=== PATIENT | male | born 2000 | race Caucasian/White ===

== ENCOUNTER 2022-10-05 16:25 | Outpatient (REF) | payer BC, SELFPAY ==
[2022-10-05 16:14] LABS: ALT 19 U/L (16-63); AST 20 U/L (15-37); Albumin 4.1 g/dL (3.4-5.0); Alkaline Phosphatase 96 U/L (46-116); Anion Gap 9.8 mmol/L (3-11); BUN 14 mg/dL (7-18); Bilirubin, Total 0.5 mg/dL (0.2-1.0); CO2 26.2 mmol/L (21.0-32.0); CREATININE 0.9 mg/dL (0.70-1.30); Calcium 9.4 mg/dL (8.5-10.1); Calculated LDL 163 mg/dL (<100); Chloride 101 mmol/L (98-107); Cholesterol 228 mg/dL (<200); Estimated GFR 125.39 (mL/min/1.73m2); Glucose 79 mg/dL (74-106); HDL Cholesterol 42 mg/dL (40-60); Potassium 4.6 mmol/L (3.5-5.1); Sodium 137 mmol/L (136-145); Total Protein 7.6 g/dL (6.4-8.2); Triglyceride 117 mg/dL (<150)
== END 2022-10-05 16:26 | disposition home or self-care (01) ==
LOC: LBN 16:25
PROVIDERS: PCP Family Medicine; Visit Provider Family Medicine
DX: Z00.00 Encounter for general adult medical examination without abnormal findings (principal); E66.9 Obesity, unspecified; R03.0 Elevated blood-pressure reading, without diagnosis of hypertension
CPT/HCPCS: 80053; 80061

== ENCOUNTER 2023-03-09 12:44 | Outpatient (REF) | payer BC, SELFPAY | END 2023-03-09 12:45 | disposition home or self-care (01) | LOC: LBN 12:44 | PROVIDERS: PCP Family Medicine; Visit Provider Physician Assistant Medical | DX: J35.1 Hypertrophy of tonsils (principal) | CPT/HCPCS: 87081 ==

== ENCOUNTER 2023-05-17 09:35 | Outpatient (REF) | payer BC, SELFPAY ==
[2023-05-18 09:03] LABS: Source Nasal/Nares
[2023-05-18 12:50] LABS: COVID-19 PCR Negative (Negative)
== END 2023-05-17 09:36 | disposition home or self-care (01) ==
LOC: LBN 09:35
PROVIDERS: PCP Family Medicine; Visit Provider Nurse Practitioner Family
DX: J06.9 Acute upper respiratory infection, unspecified (principal); Z20.822 Contact with and (suspected) exposure to COVID-19
CPT/HCPCS: 87635

== ENCOUNTER → 2023-05-17 09:38 | Outpatient (REF) | payer BC, SELFPAY ==
--- NOTE | 2023-05-17 09:54 | DI.RAD_ITS ---
Exam(s) XR CHEST 2V PA LATERAL EXAM: XR CHEST 2V PA LATERAL CLINICAL HISTORY: COUGH TECHNIQUE: 2D digital imaging was performed of the chest. Two images were obtained. PA and lateral views were obtained. COMPARISON: No exams were available for comparison FINDINGS: MEDIASTINUM: Normal. HEART: Normal. PULMONARY VASCULATURE: Normal. LUNGS: Clear. PLEURAL SPACE: No pleural effusion or pneumothorax. BONE:Within normal limits for the patient's age. OTHER FINDINGS:Normal. IMPRESSION: No acute pulmonary findings. DATA REPOSITORY: RADIATION DOSE DELIVERED:
--- NOTE | 2023-05-17 10:00 | DI.VRAD_ITS ---
PROCEDURE INFORMATION: Exam: XR Chest Exam date and time: 05/17/2023 9:48 AM Age: 22 years old Clinical indication: Cough TECHNIQUE: Imaging protocol: Radiologic exam of the chest. Views: 2 views. COMPARISON: No relevant prior studies available. FINDINGS: Lungs: Unremarkable. No consolidation. Pleural spaces: Unremarkable. No pleural effusion. No pneumothorax. Heart/Mediastinum: Unremarkable. No cardiomegaly. Bones/joints: Unremarkable. IMPRESSION: No acute findings. Dictated and Authenticated by: Alyce Bonner MD. Ordering:CHEKO MONTANO MD
== END ==
LOC: DI 09:38
PROVIDERS: PCP Family Medicine; Visit Provider Nurse Practitioner Family
DX: R05.9 Cough, unspecified (principal)
CPT/HCPCS: 71046

== ENCOUNTER 2023-09-13 20:07 | Emergency (ER) | payer BC, SELFPAY ==
[2023-09-13 20:11] VITALS: BP 173/90; PULSE 96; RESP 16; TEMP 36.6; O2SAT 98
[2023-09-13] MEDS: Potassium Bicarbonate/Cit AC 25 MEQ TABLET.EFF PO (20:15)
--- NOTE | 2023-09-13 20:27 | ED.GENADUL_ITS ---
Discharge Plan Disposition Patient Disposition: Home Condition: Good Discharge Details Clinical Impression: Food impaction of esophagus Primary Care Provider: Hazel Rowe ED Provider: Nevaeh Ramos Home Meds and New Rx's Prescriptions: No Action No Known Home Meds Discharge Instructions Instructions: Esophageal Dilation (DC) Additional Instructions: Monitor monitor symptoms, if you have recurrent issues with swallowing, you may need to see a GI specialist. Medical Decision Making Emergent evaluation of esophageal food bolus. No airway compromise at this time. No concerning symptoms for esophageal rupture. Not tolerating secretions. Will attempt an oral medication prior to contacting surgery for d efinitive management. 2029: Patient received EZ gas and feels like the food bolus passed and that he can swallow now 2039: Patient symptom-free and drinking water freely. Discharged in good condition. Recommended following up with GI specialist if he has recurrent symptoms. Medical Records Medical records reviewed: Yes I reviewed the patient's medical records. HPI General Date/Time Provider Initiated Documentation: 09/13/23 20:16 . Limitations to Documentation: no limitations . Information obtained by: patient . HPI Narrative: 22-year-old gentleman without significant past medical history presents for evaluation of difficulty swallowing. He reports just prior to arrival he was eating steak and felt like it got stuck in his throat. He has had difficulty swallowing his saliva. He tried to swallow water and force it down, but he has not been able to tolerate that either. He reports some pain at the bottom of his neck. No voice change, no difficulty swallowing. He reports that he has had issues like this in the past, but never has had something this bad. Related Data Home Medications Medication Instructions Recorded Confirmed Unknown [No Known Home Meds] 01/20/23 09/13/23 Allergies Allergy/AdvReac Type Severity Reaction Status Date / Time seasonal Allergy Uncoded 09/13/23 20:18 General Stated Complaint: ForeignBody SANJANA: 4 PFSH All Active Problems (Updated 09/13/23 @ 20:39 by Nevaeh Ramos MD) Food impaction of esophagus (Acute) Nasal congestion (Acute) Snoring (Acute) Medical History History of seizures as a child Anxiety and depression Allergic rhinitis Tonsillar hypertrophy Hypertension Obesity Preventative health care Family History Brother Autism Social History Smoking/Tobacco Use Status: Never Smoking risk assessment performed?: Yes Alcohol Intake: never Drug use: Never What type of physical activity do you participate in: walking Frequency: 1-2 times per week Seatbelt use: always Helmet use: Yes Working smoke detector in home: Yes Firearms in home: No Do you feel safe at home: Yes Do you feel safe in your relationship?: Yes Exam Narrative Exam Narrative: Review of Systems: All systems reviewed & are unremarkable except as noted in HPI and below Well-developed, no acute distress NACT PERRL, normal conjunctiva Spitting secretions Mild tenderness in anterior neck, no crepitus Normal voice, no stridor RRR Unlabored respiratory effort, clear breath sounds bilaterally Nondistended abdomen Extremities w/o deformity, no cyanosis, no edema No rashes or lesions. no focal neurologic deficits Appropriate mood and affect Course Vital Signs Vital signs: Vital Signs Temperature 36.6 C 09/13/23 20:11 Pulse 96 H 09/13/23 20:11 Respiratory Rate 16 09/13/23 20:11 Blood Pressure 173/90 H 09/13/23 20:11 Pulse Oximetry 98 09/13/23 20:11 Temperature 36.6 C 09/13/23 20:11 Pulse 96 H 09/13/23 20:11 Respiratory Rate 16 09/13/23 20:11 Respiratory Effort Normal 09/13/23 20:17 Respiratory Pattern Normal 09/13/23 20:17 Blood Pressure 173/90 H 09/13/23 20:11 Blood Pressure Position Sitting 09/13/23 20:11 Pulse Oximetry 98 09/13/23 20:11 Oxygen Delivery Method Room Air 09/13/23 20:11 Oxygen Flow Rate 0 09/13/23 20:11 Pain Level 2 09/13/23 20:11
== END 2023-09-13 20:59 | disposition home or self-care (01) ==
PROVIDERS: Emergency Provider Emergency Medicine; PCP Family Medicine
DX: T18.128A Food in esophagus causing other injury, initial encounter (principal); I10 Essential (primary) hypertension; W44.F3XA Food entering into or through a natural orifice, initial encounter; Y93.89 Activity, other specified
CPT/HCPCS: 99283; 99282

== ENCOUNTER 2023-11-08 15:17 | Emergency (ER) | payer BC, SELFPAY ==
[2023-11-08 15:20] VITALS: BP 153/86; PULSE 86; RESP 18; TEMP 36.5; O2SAT 99
--- NOTE | 2023-11-08 15:36 | ED.GENADUL_ITS ---
Discharge Plan Disposition Patient Disposition: Home Condition: Stable Discharge Details Clinical Impression: Food impaction of esophagus Primary Care Provider: Hazel Rowe ED Provider: Popeye Garcia Home Meds and New Rx's Prescriptions: No Action No Known Home Meds Discharge Instructions Instructions: Food Impaction (ED) Additional Instructions: You were seen in the emergency department for the food impaction of your esophagus. We helped dissolve and pass the food bolus with Coca-Cola as it has a pH that is extremely acidic. You can try this at home next time this happens but please present to the ER for any airway compromise or severe symptoms. You may want to think about getting a referral to the general surgery practice for an upper endoscopy and studies on your esophagus as this is not the first time this has happened, you could have a genetic condition of the esophagus that may need treatment. Referrals: Hazel Rowe [Primary Care Provider] - Discharge Data Discharge Date/Time-TO BE ENTERED AT DEPARTURE: 11/08/23 15:54 HPI General Date/Time Provider Initiated Documentation: 11/08/23 15:27 . HPI Narrative: 22 year-old male presents to ED today by POV/ambulating with a chief complaint of food impaction in esophagus, denies choking, is breathing, states he has a foreign body sensation snf down his throat after eating steak with onset just prior to arrival. Quality described as discomfort, difficulty swallowing, no radiation to shortness of breath, cyanosis, severe pain, does vomit/spit up any attempted PO intake. Severity is described as 5-6/10. Palliating factors include tried drinking some root beer without relief. Provoking factors include nothing specific. Events leading up to the incident/Associated Symptoms: Patient has had this happen before, has not needed to be scoped. Patient not anticoagulated. Related Data Home Medications Medication Instructions Recorded Confirmed Unknown [No Known Home Meds] 01/20/23 09/13/23 Allergies Allergy/AdvReac Type Severity Reaction Status Date / Time seasonal Allergy Uncoded 09/13/23 20:18 General Stated Complaint: ThroatFB SANJANA: 3 Review of Systems All systems reviewed & are unremarkable except as noted in HPI and below Exam Narrative Exam Narrative: GENERAL APPEARANCE: Well-nourished, non-toxic, awake and alert, atraumatic, no acute distress. SKIN: Warm, pink, dry, intact, without rashes/lesions/ulcerations. HEAD: Normocephalic, atraumatic, normal hair distribution for gender/age. EYES: Pupils PERRLA, EOMs intact without nystagmus, normal conjunctiva, no exudates on lids/lashes. ENT: Nares patent, no circumoral cyanosis, no facial swelling, uvula midline NECK: Supple, trachea midline, painless cervical ROM. LUNGS/CHEST: Non-labored respirations, normal A/P diameter, symmetrical expansion, no chest wall deformity HEART (CV/PV): No peripheral edema, no JVD. ABDOMEN: Soft, non-distended, no guarding. MSK: Normal ROM, no swelling/deformity to bilateral UEs or LEs, moving all extremities without weakness, no cyanosis, spine midline without tenderness, normal curvature. NEURO: Mental Status AAOx4 - alert to person, place, time, events No facial droop, no forehead involvement. Motor: No focal weakness - strength 5/5 in bilateral UEs and LEs, proximal and distal, symmetric. Sensory: sensation intact to light touch globally. Gait normal: patient ambulated without ataxia into ED room. PSYCH: euthymic, cooperative, pleasant, appropriate speech Course Vital Signs Vital signs: Vital Signs Temperature 36.5 C 11/08/23 15:20 Pulse 86 11/08/23 15:20 Respiratory Rate 18 11/08/23 15:20 Blood Pressure 153/86 H 11/08/23 15:20 Pulse Oximetry 99 11/08/23 15:20 Temperature 36.5 C 11/08/23 15:20 Temperature Source Tympanic 11/08/23 15:20 Pulse 86 11/08/23 15:20 Respiratory Rate 18 11/08/23 15:20 Blood Pressure 153/86 H 11/08/23 15:20 Blood Pressure Position Sitting 11/08/23 15:20 Pulse Oximetry 99 11/08/23 15:20 Oxygen Delivery Method Room Air 11/08/23 15:20 Oxygen Flow Rate 0 11/08/23 15:20 Pain Level 7 11/08/23 15:20 Medical Decision Making This dictation utilizes [id number] dictation software and may contain unedited grammatical errors. 22 y/o M presents to ED today with a chief complaint of food bolus in esophagus, has happened before- ate steak, has foreign body sensation. No shortness of breath, is spitting up attempts at PO intake. Patients' medical history: seizure disorder, HTN. Family and social history: noncontributory, works at [employer]. Pertinent exam findings / vital signs include benign respiratory status, nontoxic vitals, no circumoral cyanosis. Differential / pathologies of concern include food impaction, esophagitis, esophageal stricture. Diagnostic studies of: -none. Interventions of: -Had the patient take small sips of Coca-Cola with passage of food impaction within minutes. ED Course/Assessment/Plan: 22-year-old male patient presents with food bolus in his esophagus, this has happened in the past and he has not needed any endoscopy. On arrival he is spitting up mild secretions, denies any respiratory distress and drove himself here. I had him drink a Coca-Cola to expose the food bolus to Coca-Cola's low pH to help dissolve the food bolus, he states that the food bolus passed and he has complete relief of symptoms within minutes, no pharmacologic interventions were necessary. Findings not consistent with choking, respiratory distress, patient passed his food bolus, I did counselor marriage and family him to follow-up with his primary care provider for possible esophageal studies to rule out pathology that would make this more likely to happen again in the future. Disposition of food impaction of esophagus. Patient verbalized understanding of the plan and return to ED criteria and engaged in shared decision making. Medical Records Medical records reviewed: Yes I reviewed the patient's medical records. Quality:SDOH Health Related Social Needs: No Data to Display PFSH All Active Problems (Updated 11/08/23 @ 15:40 by EVI Bishop) Food impaction of esophagus (Acute) Nasal congestion (Acute) Snoring (Acute) Medical History History of seizures as a child Anxiety and depression Allergic rhinitis Tonsillar hypertrophy Hypertension Obesity Preventative health care Family History Brother Autism Social History Smoking/Tobacco Use Status: Never Smoking risk assessment performed?: Yes Alcohol Intake: never Drug use: Never What type of physical activity do you participate in: walking Frequency: 1-2 times per week Seatbelt use: always Helmet use: Yes Working smoke detector in home: Yes Firearms in home: No Do you feel safe at home: Yes Do you feel safe in your relationship?: Yes
== END 2023-11-08 15:54 | disposition home or self-care (01) ==
PROVIDERS: Emergency Provider Physician Assistant; PCP Family Medicine
DX: T18.128A Food in esophagus causing other injury, initial encounter (principal); W44.F3XA Food entering into or through a natural orifice, initial encounter
CPT/HCPCS: 99281; 99282

== ENCOUNTER → 2023-12-22 03:02 | Outpatient (CLI) | payer BC, SELFPAY ==
--- NOTE | 2023-12-22 07:15 | DI.RAD_ITS ---
Exam(s) RF BARIUM SWALLOW EXAM: RF BARIUM SWALLOW CLINICAL HISTORY: food impaction of esophagus,[id number] TECHNIQUE: 2D and realtime digital imaging was performed. CONTRAST MATERIAL: Oral barium Oral water soluble contrast was administered. COMPARISON: No exams were available for comparison FINDINGS: ESOPHAGRAM: Performed standing and recumbent single and air contrast technique. Swallowing was intact but no aspiration nor prominent vallecular residue. There is no evidence of Ze nker's diverticulum. No hypertense upper esophageal sphincter evident. There are no fixed lesions in the esophagus. Normal diameter. No tertiary waves. No achalasia. No hiatal hernia. No reflux demonstrated. The administered radiopaque barium pill rapidly passed from the oral cavity to the GE junction with m ild holdup at the GE junction. The pill, however, rapidly passed into the stomach with 2 additional sips of barium. IMPRESSION: No significant findings on this esophagram study. RADIATION DOSE DELIVERED: sarah Leon=52.9 mGy
[2023-12-22] MEDS: Barium Sulfate 700 MG TAB PO (09:34)
[2023-12-22] MEDS: Barium Sulfate 98% W/W 140 ML BTL PO (09:34)
[2023-12-22] MEDS: Barium Sulfate 60% W/V 355 ML BTL PO (09:35)
[2023-12-22] MEDS: Simethicone/Sod Bicarb/Cit Ac, 4 gram PACKET 1 PACKET PO (09:36)
== END ==
PROVIDERS: PCP Family Medicine; Visit Provider Surgery
DX: E66.8 Other obesity (principal); T18.128A Food in esophagus causing other injury, initial encounter; W44.F3XA Food entering into or through a natural orifice, initial encounter; G47.33 Obstructive sleep apnea (adult) (pediatric)
CPT/HCPCS: 74221; J3490

== ENCOUNTER 2024-02-10 16:26 | Outpatient (REF) | payer BC, SELFPAY ==
[2024-02-10 21:20] LABS: ALT 30 U/L (16-63); AST 19 U/L (15-37); Albumin 4.3 g/dL (3.4-5.0); Alkaline Phosphatase 120 U/L (46-116); Anion Gap 9.2 mmol/L (3-11); BUN 14 mg/dL (7-18); Bilirubin, Total 0.4 mg/dL (0.2-1.0); CO2 29.8 mmol/L (21.0-32.0); Calcium 9.5 mg/dL (8.5-10.1); Calculated LDL 124 mg/dL (<100); Chloride 102 mmol/L (98-107); Cholesterol 210 mg/dL (<200); Estimated GFR 109.13 (mL/min/1.73m2); Glucose 93 mg/dL (74-106); HDL Cholesterol 47 mg/dL (40-60); Potassium 3.9 mmol/L (3.5-5.1); Sodium 141 mmol/L (136-145); Total Protein 8.2 g/dL (6.4-8.2); Triglyceride 198 mg/dL (<150)
[2024-02-10 21:31] LABS: Hemoglobin A1C 5.5 % (<5.7)
== END 2024-02-10 16:27 | disposition home or self-care (01) ==
LOC: NCHCN 16:26
PROVIDERS: Physician Assistant Medical; PCP Family Medicine; Visit Provider Family Medicine
DX: E66.9 Obesity, unspecified (principal)
CPT/HCPCS: 80053; 80061; 83036

== ENCOUNTER 2025-02-15 11:20 | Outpatient (REF) | payer BC, SELFPAY ==
[2025-02-16 12:38] LABS: ALT 24 U/L (16-63); AST 21 U/L (15-37); Albumin 4.2 g/dL (3.4-5.0); Alkaline Phosphatase 70 U/L (46-116); Anion Gap 10.5 mmol/L (3-11); BUN 8 mg/dL (7-18); Bilirubin, Total 0.6 mg/dL (0.2-1.0); CO2 27.5 mmol/L (21.0-32.0); CREATININE 1.2 mg/dL (0.70-1.30); Calcium 8.9 mg/dL (8.5-10.1); Calculated LDL 112 mg/dL (<100); Chloride 102 mmol/L (98-107); Cholesterol 174 mg/dL (<200); Estimated GFR 87.15 (mL/min/1.73m2); Glucose 87 mg/dL (74-106); HDL Cholesterol 41 mg/dL (>or=40); Potassium 4.2 mmol/L (3.5-5.1); Sodium 140 mmol/L (136-145); Total Protein 7.5 g/dL (6.4-8.2); Triglyceride 109 mg/dL (<150)
== END 2025-02-15 11:21 | disposition home or self-care (01) ==
LOC: NCHCN 11:20
PROVIDERS: PCP Family Medicine; Visit Provider Family Medicine
DX: E66.9 Obesity, unspecified (principal); E78.49 Other hyperlipidemia
CPT/HCPCS: 80053; 80061